=== PATIENT | female | born 1980 | race Caucasian/White ===

== ENCOUNTER 2019-10-02 12:02 | Emergency (ER) | payer MEDICAID ==
[~2019-10-02] VITALS: Ht 162.6 cm; Wt 100.0 kg
[2019-10-02] MEDS ORDERED: bupivacaine 0.25%/epinephrine 1:200,000 inj (contains preserv. MDV) IJ ONE (13:40)
[2019-10-02] MEDS ORDERED: HYDROcodone/acetaminophen 10/325mg tab PO ONE (13:40)
[2019-10-02] MEDS ORDERED: probenecid 500mg tablet PO ONE (13:40)
[2019-10-02] MEDS ORDERED: ampicillin/sulbac 3gm/NS 100ml 100 ML IV SCH (14:00)
[2019-10-02] MEDS ORDERED: IBUP-1984 PO (14:53)
[2019-10-02] MEDS ORDERED: HYDR-4383 PO (15:13)
[2019-10-02 15:27] VITALS: BP 170/109
== END 2019-10-02 15:30 | disposition home or self-care (01) ==
LOC: ER 12:03
DX: K04.7 Periapical abscess without sinus (principal); Z79.899 Other long term (current) drug therapy
CPT/HCPCS: 41800; 96365; 99284; J0295